=== PATIENT | male | born 1955 | race Caucasian/White ===

== ENCOUNTER 2017-10-26 16:09 | Emergency (ER) | payer MEDICARE ==
[~2017-10-26] VITALS: Ht 177.8 cm; Wt 70.0 kg
[~2017-10-26 16:09] MED LIST: ASPI-515 PO; CELE200C PO; DOCU-131 PO; MELO7.5T31 PO; ONDA4TAB13 PO; OXYC5TAB3 PO; TRAM50TA2 PO
[2017-10-26] MEDS ORDERED: HYDROmorphone 1 MG/ML, 1ML IVPush PRN (17:00)
[2017-10-26] MEDS ORDERED: ONDANSETRON 2MG/ML, 2ML IVPush ONE (17:00)
[2017-10-26] MEDS ORDERED: SODIUM CHLORIDE FLUSH 10ML SYR IVF ONE (17:00)
[2017-10-26] MEDS ORDERED: ONDANSETRON 2MG/ML, 2ML ONE (17:10)
[2017-10-26] MEDS ORDERED: HYDROmorphone 2 MG/ML, 1ML ONE (17:10)
[2017-10-26] MEDS ORDERED: CELE50CA PO (17:18)
[2017-10-26 17:25] LABS: BASOPHILS % (AUTO) 0 % (0-1); EOSINOPHILS % (AUTO) 0 % (1-7); LYMPHOCYTES # (AUTO) 1.22 x10^3/uL (1-3.4); LYMPHOCYTES % (AUTO) 9 % (22-44); MD NO; MEAN CORPUSCULAR HEMOGLOBIN 31.9 pg (27.5-34.5); MEAN CORPUSCULAR HGB CONC 33.7 g/dL (33.2-36.2); MEAN CORPUSCULAR VOLUME 94.9 fL (81-97); MEAN PLATELET VOLUME 8.8 fL (7.4-10.4); MONOCYTES # (AUTO) 0.18 x10^3/uL (0.2-0.8); MONOCYTES % (AUTO) 1 % (2-9); NEUTROPHILS # (AUTO) 12.43 x10^3/uL (1.8-6.8); NEUTROPHILS % (AUTO) 90 % (42-75); PLATELET COUNT 350 x10^3/uL (130-400); RED BLOOD COUNT 4.44 x10^6/uL (4.38-5.82); RED CELL DISTRIBUTION WIDTH 13.5 % (9.4-14.8)
[2017-10-26 17:31] LABS: ALBUMIN 4.2 g/dL (3.4-5.0); ANION GAP 10 mmol/L (5-15); CALCIUM 9.3 mg/dL (8.5-10.1); CHLORIDE 105 mmol/L (98-107); CREATININE 1.08 mg/dL (0.7-1.3)
[2017-10-26 18:47] LABS: MICROSCOPIC AUTO
[2017-10-26 18:48] LABS: CULTURE INDICATED? YES
[2017-10-26 19:30] VITALS: BP 124/86
== END 2017-10-26 19:34 | disposition home or self-care (01) ==
LOC: ED 19:16
DX: N13.2 Hydronephrosis with renal and ureteral calculous obstruction (principal); R31.9 Hematuria, unspecified
CPT/HCPCS: 36415; 74176; 80048; 81001; 82040; 85025; 87086; 96374; 96375; 99285; J1170; J2405